=== PATIENT | male | born 1985 | race Caucasian/White ===

== ENCOUNTER 2017-11-28 17:15 | Emergency (ER) | payer SELFPAY ==
[~2017-11-28] VITALS: Ht 175.3 cm; Wt 85.0 kg
[2017-11-28 17:28] VITALS: BP 148/73
== END 2017-11-29 | disposition left against medical advice (07) ==
LOC: ER 17:15
DX: F41.9 Anxiety disorder, unspecified (principal); Z53.21 Procedure and treatment not carried out due to patient leaving prior to being seen by health care provider
CPT/HCPCS: 93005